=== PATIENT | female | born 2005 | race Caucasian/White ===

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

== ENCOUNTER 2025-05-13 14:22 | Outpatient (CLI) | payer BC | END 2025-05-13 14:23 | disposition home or self-care (01) | LOC: SCSRAD 14:22 | PROVIDERS: ATTEND Family Medicine | DX: S99.912A Unspecified injury of left ankle, initial encounter (principal); M67.874 Other specified disorders of tendon, left ankle and foot ==